=== PATIENT | female | born 1940 | race Caucasian/White ===

== ENCOUNTER 2018-07-15 10:23 | Inpatient (IN) | payer MEDICARE ==
[~2018-07-15] VITALS: Ht 152.4 cm; Wt 56.0 kg
--- NOTE | 2018-07-15 10:34 | NUR ---
PT REFUSES WHEELCHAIR
--- NOTE | 2018-07-15 10:42 | NUR ---
CUSTOMER CARE ASSOCIATE: TO ROOM FROM LOBBY
[2018-07-15] MEDS ORDERED: OLME1TAB28 PO (11:11)
[2018-07-15] MEDS ORDERED: PRAV20TA2 PO (11:12)
[2018-07-15] MEDS ORDERED: AMLO2.5T5 PO (11:12)
[2018-07-15] MEDS ORDERED: ASPI-515 PO (11:12)
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
[2018-07-15 11:45] LABS: BASOPHILS # (AUTO) 0.02 x10^3/uL (0-0.1); BASOPHILS % (AUTO) 0 % (0-1); EOSINOPHILS # (AUTO) 0.18 x10^3/uL (0-0.4); EOSINOPHILS % (AUTO) 1 % (1-7); LYMPHOCYTES # (AUTO) 1.89 x10^3/uL (1-3.4); LYMPHOCYTES % (AUTO) 14 % (22-44); MD NO; MEAN CORPUSCULAR HEMOGLOBIN 31.5 pg (27.0-34.8); MEAN CORPUSCULAR HGB CONC 33.7 g/dL (32.4-35.8); MEAN CORPUSCULAR VOLUME 93.5 fL (80-100); MEAN PLATELET VOLUME 7.2 fL (7.4-10.4); MONOCYTES # (AUTO) 0.97 x10^3/uL (0.2-0.8); MONOCYTES % (AUTO) 7 % (2-9); NEUTROPHILS # (AUTO) 10.67 x10^3/uL (1.8-6.8); NEUTROPHILS % (AUTO) 78 % (42-75); PLATELET COUNT 535 x10^3/uL (130-400); RED BLOOD COUNT 4.96 x10^6/uL (3.82-5.3); RED CELL DISTRIBUTION WIDTH 12.9 % (9.6-15.2)
[2018-07-15 11:54] LABS: INTERNATIONAL NORMALIZED RATIO 1.02 (0.93-1.1); PROTHROMBIN TIME 10.8 Seconds (9.6-11.5)
[2018-07-15 11:55] LABS: ALANINE AMINOTRANSFERASE 31 U/L (12-78); ALBUMIN 3.5 g/dL (3.4-5.0); ANION GAP 9 mmol/L (5-15); CALCIUM 8.5 mg/dL (8.5-10.1); CHLORIDE 85 mmol/L (98-107); CREATININE 0.61 mg/dL (0.55-1.02)
[2018-07-15 11:57] LABS: ALKALINE PHOSPHATASE 105 U/L (45-117); BILIRUBIN,TOTAL 0.4 mg/dL (0.2-1.0); TOTAL PROTEIN 7.1 g/dL (6.4-8.2)
--- NOTE | 2018-07-15 13:20 | NUR ---
RECEIVED BEDSIDE REPORT FROM FER MORALES. ASSUMED PT CARE AT THIS TIME.
--- NOTE | 2018-07-15 13:29 | NUR ---
PT RESTING ON GURNEY. NO ACUTE DISTRESS NOTED. EDMD BEDSIDE EXPLAINING POC. PT VERBALIZES UNDERSTANDING OF POC. NO NEEDS REQUESTED AT THIS TIME.
[2018-07-15 13:54] LABS: MICROSCOPIC NOT IND
[2018-07-15 13:56] LABS: CULTURE INDICATED? NO
--- NOTE | 2018-07-15 14:27 | NUR ---
REPORT TO FER GUILLEN. ALL QUESTIONS ANSWERED.
--- NOTE | 2018-07-15 14:42 | NUR ---
PT TRANSFERRED TO FLOOR. PIV ESTABLISHED PRIOR TO TRANSPORT BY BETY WILLIAMSON. PT LEFT WITH ALL PERSONAL BELONGINGS.
[2018-07-15] MEDS ORDERED: ENALAPRILAT 1.25 MG/ML, 2ML IVPush PRN (15:00)
[2018-07-15] MEDS ORDERED: ONDANSETRON 2MG/ML, 2ML IVPush PRN (15:00)
[2018-07-15] MEDS ORDERED: LORazepam 2 MG/ML, 1ML IVPush ONE ×2 (15:00→16:00)
[2018-07-15 15:50] LABS: FREE T4 (FREE THYROXINE) 1.64 ng/dL (0.76-1.46); THYROID STIMULATING HORMONE 0.932 mIU/L (0.358-3.740)
[2018-07-15 16:02] LABS: FOLATE LEVEL > 20.0 ng/mL (3.1-17.5)
[2018-07-15] MEDS: ENOXAPARIN 40 MG/0.4 ML SQ SCH (16:12)
[2018-07-15] MEDS: SODIUM CHLORIDE 0.9% 1,000 ML IV SCH (16:12)
[2018-07-15] MEDS: POTASSIUM CHLORIDE 20 MEQ TAB.ER.PRT PO SCH (16:12)
[2018-07-15] MEDS ORDERED: GADOBUTROL 7.5 MMOL/7.5 ML PFS ONE (18:09)
[2018-07-15 19:38] LABS: ANION GAP 7 mmol/L (5-15); CHLORIDE 88 mmol/L (98-107); CREATININE 0.67 mg/dL (0.55-1.02)
[2018-07-15 21:25] VITALS: BP 128/68
[2018-07-15] MEDS: PRAVASTATIN 20 MG TABLET PO SCH (21:45)
[2018-07-16 00:46] VITALS: BP_SYST 141; BP_SYST 152; BP_SYST 153; BP_DIAS 82; BP_DIAS 84; BP_DIAS 89
[2018-07-16] MEDS: SODIUM CHLORIDE 0.9% 1,000 ML IV SCH (03:34)
[2018-07-16 03:42] LABS: CHLORIDE,URINE RANDOM 70 mmol/L; POTASSIUM,URINE RANDOM 23 mmol/L; SODIUM,URINE RANDOM 75 mmol/L
[2018-07-16 04:07] LABS: OSMOLALITY,URINE 314 mOsm/kg (500-850)
[2018-07-16 05:17] LABS: CHLORIDE 91 mmol/L (98-107)
[2018-07-16 05:22] LABS: ALANINE AMINOTRANSFERASE 25 U/L (12-78); ALBUMIN 2.8 g/dL (3.4-5.0); ALKALINE PHOSPHATASE 90 U/L (45-117); ANION GAP 6 mmol/L (5-15); BASOPHILS # (AUTO) 0.02 x10^3/uL (0-0.1); BASOPHILS % (AUTO) 0 % (0-1); BILIRUBIN,TOTAL 0.5 mg/dL (0.2-1.0); CALCIUM 7.8 mg/dL (8.5-10.1); CREATININE 0.55 mg/dL (0.55-1.02); EOSINOPHILS # (AUTO) 0.08 x10^3/uL (0-0.4); EOSINOPHILS % (AUTO) 1 % (1-7); LYMPHOCYTES # (AUTO) 1.55 x10^3/uL (1-3.4); LYMPHOCYTES % (AUTO) 20 % (22-44); MD NO; MEAN CORPUSCULAR HGB CONC 34.1 g/dL (32.4-35.8); MEAN CORPUSCULAR VOLUME 93.8 fL (80-100); MEAN PLATELET VOLUME 7.3 fL (7.4-10.4); MONOCYTES # (AUTO) 0.69 x10^3/uL (0.2-0.8); MONOCYTES % (AUTO) 9 % (2-9); NEUTROPHILS # (AUTO) 5.43 x10^3/uL (1.8-6.8); NEUTROPHILS % (AUTO) 70 % (42-75); PLATELET COUNT 438 x10^3/uL (130-400); RED BLOOD COUNT 4.38 x10^6/uL (3.82-5.3); RED CELL DISTRIBUTION WIDTH 12.8 % (9.6-15.2); TOTAL PROTEIN 5.7 g/dL (6.4-8.2)
[2018-07-16 06:30] VITALS: BP_SYST 117; BP_SYST 135; BP_SYST 140; BP_DIAS 69; BP_DIAS 70; BP_DIAS 76
[2018-07-16] MEDS ORDERED: HYDROCHLOROTHIAZIDE 25 MG TABLET PO SCH (09:00)
[2018-07-16] MEDS: LOSARTAN 50MG TABLET PO SCH (10:35)
[2018-07-16] MEDS: AMLODIPINE 2.5 MG TABLET PO SCH (10:36)
[2018-07-16] MEDS: POTASSIUM CHLORIDE 20 MEQ TAB.ER.PRT PO SCH ×2 (10:36→16:30)
[2018-07-16] MEDS: ASPIRIN 81 MG TABLET EC PO SCH (10:36)
[2018-07-16 12:52] VITALS: BP 111/63
[2018-07-16] MEDS: ENOXAPARIN 40 MG/0.4 ML SQ SCH (16:30)
[2018-07-16 18:44] LABS: ANION GAP 7 mmol/L (5-15); CALCIUM 8.2 mg/dL (8.5-10.1); CHLORIDE 96 mmol/L (98-107); CREATININE 0.51 mg/dL (0.55-1.02)
[2018-07-16 20:00] VITALS: BP 123/79
[2018-07-16] MEDS: PRAVASTATIN 20 MG TABLET PO SCH (21:56)
[2018-07-17 01:44] VITALS: BP_SYST 147; BP_SYST 151; BP_SYST 158; BP_DIAS 80; BP_DIAS 81; BP_DIAS 83
[2018-07-17] MEDS: ACETAMINOPHEN 325 MG TABLET PO PRN ×2 (02:29→19:29)
[2018-07-17 05:57] LABS: ALBUMIN 3.1 g/dL (3.4-5.0); ANION GAP 7 mmol/L (5-15); CALCIUM 8.3 mg/dL (8.5-10.1); CHLORIDE 96 mmol/L (98-107)
[2018-07-17 06:03] LABS: ALANINE AMINOTRANSFERASE 28 U/L (12-78); ALKALINE PHOSPHATASE 96 U/L (45-117); BILIRUBIN,TOTAL 0.5 mg/dL (0.2-1.0); CREATININE 0.37 mg/dL (0.55-1.02); TOTAL PROTEIN 6.3 g/dL (6.4-8.2)
[2018-07-17 06:45] VITALS: BP_SYST 130; BP_SYST 144; BP_SYST 145; BP_DIAS 74; BP_DIAS 76; BP_DIAS 77
[2018-07-17] MEDS: POTASSIUM CHLORIDE 20 MEQ TAB.ER.PRT PO SCH ×2 (08:00→16:01)
[2018-07-17] MEDS: ASPIRIN 81 MG TABLET EC PO SCH (08:07)
[2018-07-17] MEDS: AMLODIPINE 2.5 MG TABLET PO SCH (08:07)
[2018-07-17] MEDS: SODIUM CHLORIDE 1 GM TABLET PO SCH ×3 (08:07→19:29)
[2018-07-17] MEDS: LOSARTAN 50MG TABLET PO SCH (08:07)
[2018-07-17 14:03] VITALS: BP_SYST 130; BP_SYST 143; BP_DIAS 76; BP_DIAS 77; BP_DIAS 78
[2018-07-17] MEDS: ENOXAPARIN 40 MG/0.4 ML SQ SCH (15:59)
[2018-07-17 18:01] LABS: ANION GAP 7 mmol/L (5-15); CALCIUM 8.4 mg/dL (8.5-10.1); CHLORIDE 99 mmol/L (98-107)
[2018-07-17] MEDS: PRAVASTATIN 20 MG TABLET PO SCH (19:29)
[2018-07-17 19:30] VITALS: BP_SYST 137; BP_SYST 147; BP_SYST 150; BP_DIAS 71; BP_DIAS 77; BP_DIAS 80
[2018-07-18 00:28] VITALS: BP_SYST 123; BP_SYST 131; BP_SYST 154; BP_DIAS 73; BP_DIAS 75; BP_DIAS 76
[2018-07-18 06:53] LABS: ANION GAP 6 mmol/L (5-15); CALCIUM 8.5 mg/dL (8.5-10.1); CHLORIDE 97 mmol/L (98-107); CREATININE 0.38 mg/dL (0.55-1.02)
[2018-07-18] MEDS: ASPIRIN 81 MG TABLET EC PO SCH (07:39)
[2018-07-18] MEDS: SODIUM CHLORIDE 1 GM TABLET PO SCH (07:39)
[2018-07-18] MEDS: POTASSIUM CHLORIDE 20 MEQ TAB.ER.PRT PO SCH (07:39)
[2018-07-18] MEDS: AMLODIPINE 2.5 MG TABLET PO SCH (07:39)
[2018-07-18 07:40] VITALS: BP 148/77
[2018-07-18] MEDS: LOSARTAN 50MG TABLET PO SCH (07:40)
[2018-07-18 08:37] VITALS: BP 160/74
[2018-07-18 08:40] VITALS: BP 170/84
[2018-07-18] MEDS ORDERED: LOSA50TA2 PO (11:02)
[2018-07-18] MEDS ORDERED: AMLO2.5T5 PO (11:02)
[2018-07-18] MEDS ORDERED: SODI1TAB PO (11:02)
== END 2018-07-18 12:18 | disposition home or self-care (01) | DRG 644 ==
LOC: ED 10:51 → EDIP 13:49 → 3NE 14:43 → DCLOUNGE 07-18 12:14
PROVIDERS: ADMIT Internal Medicine; ATTEND Internal Medicine
DX: E22.2 Syndrome of inappropriate secretion of antidiuretic hormone (principal); E87.3 Alkalosis; R27.0 Ataxia, unspecified; W01.0XXA Fall on same level from slipping, tripping and stumbling without subsequent striking against object, initial encounter; Y93.89 Activity, other specified; Y92.89 Other specified places as the place of occurrence of the external cause; Y99.8 Other external cause status; D72.829 Elevated white blood cell count, unspecified; E73.9 Lactose intolerance, unspecified; E78.00 Pure hypercholesterolemia, unspecified; E78.5 Hyperlipidemia, unspecified; E86.0 Dehydration; E87.6 Hypokalemia; I10 Essential (primary) hypertension; Z90.710 Acquired absence of both cervix and uterus; D47.3 Essential (hemorrhagic) thrombocythemia
CPT/HCPCS: 36415; 70450; 70553; 80048; 80053; 81003; 82436; 82607; 82746; 83930; 83935; 84133; 84300; 84439; 84443; 85025; 85610; 85730; 86592; 93005; 99285; A9585; G0378; J1650; J2060; J7030